=== PATIENT | female | born 1990 | race Hispanic/Latino ===

== ENCOUNTER 2021-08-16 16:49 | Emergency (ER) | payer SELFPAY ==
[~2021-08-16] VITALS: Ht 165.1 cm; Wt 63.5 kg
[2021-08-16 18:19] LABS: CLARITY,URINE SL CLOUDY (CLEAR); COLOR,URINE YELLOW (YELLOW); KETONES,URINE NEGATIVE (NEGATIVE); LEUKOCYTE ESTERASE ,URINE NEGATIVE (NEGATIVE); NITRITE,URINE NEGATIVE (NEGATIVE); PROTEIN,URINE DIPSTICK NEGATIVE (NEGATIVE)
[2021-08-16 18:34] LABS: BACTERIA,URINE FEW /HPF; EPITHELIAL CELLS,URINE FEW /LPF; RBC,URINE 0-5 /HPF (0-5); RENAL EPITHELIAL CELLS,URINE FEW; WBC,URINE (MAN) 0-5 /HPF (0-5)
== END 2021-08-16 20:38 | disposition home or self-care (01) ==
LOC: ER 17:15
DX: B34.9 Viral infection, unspecified (principal); Z20.822 Contact with and (suspected) exposure to COVID-19
CPT/HCPCS: 81001; 81025; 99282; U0002

== ENCOUNTER 2022-06-06 09:08 | Emergency (ER) | payer BC, OTHER ==
[~2022-06-06] VITALS: Ht 165.1 cm; Wt 98.1 kg
[2022-06-06] MEDS ORDERED: SODIUM CHLORIDE 0.9% 1000ML 1,000 ML IV STA (10:04)
[2022-06-06] MEDS ORDERED: SODIUM CHLORIDE 0.9% 1000ML 1,000 ML ONE (10:49)
[2022-06-06] MEDS ORDERED: TAMIFLU75 MG PO ×2 (11:01→11:08)
[2022-06-06] MEDS ORDERED: ONDANSETRON ODT4 MG PO ×2 (11:01→11:08)
[2022-06-06] MEDS ORDERED: ACETAMINOPHEN500 MG PO ×2 (11:01→11:08)
[2022-06-06 12:02] VITALS: BP 134/71
== END 2022-06-06 12:03 | disposition home or self-care (01) ==
LOC: FSED 09:17
DX: O26.892 Other specified pregnancy related conditions, second trimester (principal); J10.1 Influenza due to other identified influenza virus with other respiratory manifestations; R10.11 Right upper quadrant pain
CPT/HCPCS: 76805; 80053; 81003; 83518; 85025; 87400; 99284; J7030